=== PATIENT | female | born 1985 | race Caucasian/White ===

== ENCOUNTER → 2020-09-17 | Outpatient (CLI) | payer OTHER ==
[2020-09-17 16:38] LABS: Source, Urine Clean Catch
[2020-09-17 17:50] LABS: Appearance, Urine Turbid (Clear); Bilirubin, Urine Neg (Neg); Blood, Urine Neg (Neg); Color, Urine Yellow (P-Yellow); Glucose Qualitative, Urine Neg (Neg); Ketones, Urine Neg (Neg); Leukocyte Esterase, Urine 2+ (Neg); Nitrite, Urine Neg (Neg); Protein, Urine 1+ (Neg); Urobilinogen, Urine 1+ (Normal)
[2020-09-17 18:02] LABS: Red Blood Cells, Urine Not Seen /hpf (0-2); Squamous Epithelial Cells Many /hpf (Few)
[2020-09-17 18:03] LABS: Amorphous Heavy (0-Heavy); Bacteria Few /hpf
== END | disposition home or self-care (01) ==
LOC: LAB SHORT 11:30 → LAB 11:30
PROVIDERS: Nurse Practitioner Family
DX: R31.29 Other microscopic hematuria (principal)
CPT/HCPCS: 81001; 87086

== ENCOUNTER → 2020-12-05 | Outpatient (CLI) | payer OTHER ==
[2020-12-09 18:10] LABS: HPV 16 Positive (Negative); HPV 18 Negative (Negative); HPV OTHER HR TYPES Positive (Negative)
[2020-12-11 19:09] LABS: CHLAMYDIA BY NAA Negative (Negative); GONOCOCCUS BY NAA Negative (Negative); TRICH VAG BY NAA Negative (Negative)
== END | disposition home or self-care (01) ==
LOC: LAB 19:11 → LAB SHORT 19:11
PROVIDERS: Family Medicine
DX: Z11.52 Encounter for screening for COVID-19 (principal); Z12.4 Encounter for screening for malignant neoplasm of cervix
CPT/HCPCS: 87491; 87591; 87624; 87625; 87661; G0123

== ENCOUNTER → 2021-01-10 | Outpatient (CLI) | payer OTHER | END | disposition home or self-care (01) | LOC: LAB SHORT 16:38 → LAB EV 16:38 | DX: R30.9 Painful micturition, unspecified (principal) | CPT/HCPCS: 87086 ==

== ENCOUNTER → 2021-01-16 | Outpatient (CLI) | payer OTHER | END | disposition home or self-care (01) | LOC: LAB SHORT 13:21 → PLD 13:21 | DX: R87.610 Atypical squamous cells of undetermined significance on cytologic smear of cervix (ASC-US) (principal); R87.810 Cervical high risk human papillomavirus (HPV) DNA test positive | CPT/HCPCS: 88305 ==

== ENCOUNTER → 2021-04-21 | Outpatient (CLI) | payer OTHER | LOC: LAB 11:10 → LAB SHORT 11:10 | DX: N89.8 Other specified noninflammatory disorders of vagina (principal); N94.10 Unspecified dyspareunia; L29.3 Anogenital pruritus, unspecified | CPT/HCPCS: 87070; 87147; 87205 ==

== ENCOUNTER → 2022-01-18 | Outpatient (CLI) | payer OTHER ==
[2022-01-19 15:12] LABS: HPV 16 Negative (Negative); HPV 18 Negative (Negative); HPV OTHER HR TYPES Positive (Negative)
== END | disposition home or self-care (01) ==
LOC: LAB SHORT 12:41 → REF 12:41
PROVIDERS: Family Medicine
DX: Z12.4 Encounter for screening for malignant neoplasm of cervix (principal)
CPT/HCPCS: 87624; 87625; G0123

== ENCOUNTER → 2022-10-07 | Outpatient (CLI) | payer OTHER | LOC: LAB SHORT 09:04 → LAB 09:04 | DX: B35.1 Tinea unguium (principal); L60.2 Onychogryphosis | CPT/HCPCS: 88305; 88312 ==

== ENCOUNTER → 2023-02-28 | Outpatient (CLI) | payer OTHER ==
[2023-03-01 16:07] LABS: HPV 16 Negative (Negative); HPV 18 Negative (Negative); HPV OTHER HR TYPES Negative (Negative)
== END ==
LOC: RAD SHORT 11:00 → LAB 11:00
PROVIDERS: Family Medicine
DX: Z12.4 Encounter for screening for malignant neoplasm of cervix (principal)
CPT/HCPCS: 87624; G0145

== ENCOUNTER 2023-04-12 09:22 | Emergency (ER) | payer OTHER ==
[~2023-04-12] VITALS: Ht 167.6 cm; Wt 116.1 kg
[2023-04-12 09:32] VITALS: BP 165/104
== END 2023-04-12 10:27 | disposition home or self-care (01) ==
LOC: ER 09:22
DX: S80.12XA Contusion of left lower leg, initial encounter (principal); W01.0XXA Fall on same level from slipping, tripping and stumbling without subsequent striking against object, initial encounter
CPT/HCPCS: 99283

== ENCOUNTER 2023-09-23 08:51 | Observation (INO) | payer OTHER ==
[~2023-09-23] VITALS: Ht 167.6 cm; Wt 99.0 kg
[2023-09-23 09:30] LABS: BASOPHILS ABSOLUTE AUTO 0.03 K/mm3 (0.00-0.23); BASOPHILS PERCENT AUTO 0 % (0-2); EOSINOPHILS PERCENT AUTO 0 % (0-6); Hematocrit 45.6 % (33.0-51.0); Hemoglobin 14.7 g/dL (11.5-16.0); IMMATURE GRAN ABSOLUTE AUTO 0.03 K/mm3 (0.00-0.10); IMMATURE GRAN PERCENT AUTO 0 % (0-1); LYMPHOCYTES ABSOLUTE AUTO 0.63 K/mm3 (0.84-5.20); LYMPHOCYTES PERCENT AUTO 6 % (21-46); MONOCYTES ABSOLUTE AUTO 0.56 K/mm3 (0.16-1.47); MONOCYTES PERCENT AUTO 6 % (4-13); Mean Corpuscular HGB 27.5 pg (26.0-34.0); Mean Corpuscular HGB Conc 32.2 g/dL (31.5-36.5); Mean Corpuscular Volume 85 fL (80-100); Mean Platelet Volume 11.1 fL (9.1-12.4); NEUTROPHILS ABSOLUTE AUTO 8.73 K/mm3 (1.96-9.15); NEUTROPHILS PERCENT AUTO 88 % (41-73); Platelet Count 260 K/mm3 (150-400); RDW Coefficient Variation 14.9 % (11.7-14.2); RDW Standard Deviation 45.8 fL (35.1-46.3); Red Blood Cell Count 5.34 M/mm3 (3.80-5.20); White Blood Cell Count 9.98 K/mm3 (4.00-11.30)
[2023-09-23 10:07] LABS: Albumin, Blood 4.3 g/dL (3.4-5.0); Albumin/Globulin Ratio 0.9 (0.8-1.8); Bilirubin, Total 0.6 mg/dL (0.1-1.0); Bun/Creatinine Ratio 26.2 (12.0-20.0); Calcium, Blood 10.1 mg/dL (8.5-10.1); Creatinine, Blood 0.96 mg/dL (0.40-1.00); Globulin, Blood 4.7 g/dL (2.2-4.0); Potassium, Blood 4.2 mmol/L (3.5-5.5)
[2023-09-23 10:40] LABS: Base Excess Venous -16.7 mmol/L; Bicarbonate Venous 12.4 mmol/L (24.0-30.0); PCO2 Venous 33.2 mmHg (38-42); pH Blood Venous 7.16 (7.34-7.37)
[2023-09-23 10:43] LABS: Influenza A, PCR NEGATIVE (NEGATIVE); Influenza B, PCR NEGATIVE (NEGATIVE); Resp Syncytial Virus, PCR NEGATIVE (NEGATIVE); SARS-Cov-2 (COVID-19) PCR, MMC NEGATIVE (NEGATIVE)
[2023-09-23 10:57] LABS: Source, Urine Clean Catch
[2023-09-23 11:00] LABS: Appearance, Urine Clear (Clear); Bilirubin, Urine Neg (Neg); Blood, Urine Neg (Neg); Glucose Qualitative, Urine 4+ (Neg); Ketones, Urine 4+ (Neg); Leukocyte Esterase, Urine Neg (Neg); Nitrite, Urine Neg (Neg); Protein, Urine 1+ (Neg); Urobilinogen, Urine NORM (Normal)
[2023-09-23 11:10] LABS: Color, Urine Pale Yellow (P-Yellow)
[2023-09-23 14:08] VITALS: BP 128/89
[2023-09-23] MEDS ORDERED: METF500 PO (14:23)
[2023-09-23] MEDS ORDERED: STEGLATRO15 MG PO (14:24)
[2023-09-23] MEDS ORDERED: ZYRTEC10 M1 PO (14:25)
[2023-09-23] MEDS ORDERED: DOCU100 PO (14:26)
[2023-09-23] MEDS ORDERED: CALCIUM CIT 311 EAC7 PO (14:28)
[2023-09-23] MEDS ORDERED: FLINTSTONES WIT18 M2 PO (14:29)
[2023-09-23] MEDS ORDERED: ATOR40TA PO (14:30)
[2023-09-23] MEDS ORDERED: Vitamin D1000 UNI1 PO (14:31)
[2023-09-23] MEDS ORDERED: ENOX40I SC (14:32)
[2023-09-23] MEDS ORDERED: OMEP20ER PO (14:34)
[2023-09-23 15:55] VITALS: BP 148/98
--- NOTE | 2023-09-23 16:50 | NUR ---
SHIFT SUMMARY PT IS A NEW ADMIT THIS AFTERNOON. SHE CAME IN WITH KETOACIDOSIS. SHE RECENTLY HAD A GASTRIC SLEEVE PLACED 08/24 AND SWITCHED TO SOLID FOODS A FEW WEEKS AGO. THE PT THINKS SHE MAY HAVE HAD SOME SPOILED LUNCH MEAT YESTERDAY AND HAS BEEN HAVING N/V/D SINCE YESTERDAY NIGHT. SINCE MEDICATED FOR N/V IN THE ER THE PT HAS NOT BEEN HAVING ANY, AND HAS BEEN ABLE TO TOLERATE JELO AND WATER. SHE DENIES ANY ABD PAIN AT THIS TIME. SHE HAS NS INFUSING AT 200ML/HR PER EMAR. ON TELE SHE IS ST 100'S-110'S BUT SHE STATES SHE FELS PALIPATIONS WHEN HER HR SPEEDS UP. THIS HAS BEEN ONGOING SINCE HER SURGERY. THE PT DOES NOT TAKE ANY CARDIAC MEDICATIONS AT HOME. SHE STATED THAT HER PCP RECENTLY STOPPED HER 5MG LISINOPRIL. HER SP02 >90% ON RA AND SHE DENIES ANY SOB. TODAY IS THE PT'S BIRTHDAY AND HER AND DAUGHTER STOPPED BY AND VISITED. THE HAS BEEN UPDATED ON THE PT'S CONDITION. SEE NOTES FOR ANYMORE UPDATES. FIRE IGNITION RISK HAS BEEN ASSESSED.
[2023-09-23 17:04] LABS: Calcium, Blood 8.8 mg/dL (8.5-10.1); Creatinine, Blood 0.83 mg/dL (0.40-1.00); Potassium, Blood 4.3 mmol/L (3.5-5.5)
[2023-09-23 22:11] LABS: Bun/Creatinine Ratio 20.4 (12.0-20.0); Calcium, Blood 8.2 mg/dL (8.5-10.1); Creatinine, Blood 0.83 mg/dL (0.40-1.00); Potassium, Blood 4.3 mmol/L (3.5-5.5)
[2023-09-24 00:15] VITALS: BP 93/59
[2023-09-24 05:16] LABS: BASOPHILS ABSOLUTE AUTO 0.01 K/mm3 (0.00-0.23); BASOPHILS PERCENT AUTO 0 % (0-2); EOSINOPHILS ABSOLUTE AUTO 0.04 K/mm3 (0.00-0.68); EOSINOPHILS PERCENT AUTO 1 % (0-6); Hematocrit 36.6 % (33.0-51.0); Hemoglobin 11.7 g/dL (11.5-16.0); IMMATURE GRAN ABSOLUTE AUTO 0.02 K/mm3 (0.00-0.10); IMMATURE GRAN PERCENT AUTO 0 % (0-1); LYMPHOCYTES ABSOLUTE AUTO 1.42 K/mm3 (0.84-5.20); LYMPHOCYTES PERCENT AUTO 24 % (21-46); MONOCYTES ABSOLUTE AUTO 0.37 K/mm3 (0.16-1.47); MONOCYTES PERCENT AUTO 6 % (4-13); Mean Corpuscular Volume 88 fL (80-100); Mean Platelet Volume 11.5 fL (9.1-12.4); NEUTROPHILS ABSOLUTE AUTO 4.19 K/mm3 (1.96-9.15); NEUTROPHILS PERCENT AUTO 69 % (41-73); Platelet Count 230 K/mm3 (150-400); RDW Coefficient Variation 15.5 % (11.7-14.2); RDW Standard Deviation 50.2 fL (35.1-46.3); Red Blood Cell Count 4.18 M/mm3 (3.80-5.20); White Blood Cell Count 6.05 K/mm3 (4.00-11.30)
--- NOTE | 2023-09-24 05:50 | NUR ---
SHIFT SUMMARY PT IS HERE WITH KETOACIDOSIS AND IS ALSO S/P FROM A GASTRIC SLEEVE PERFORMED A MONTH AGO. PT WAS ABLE TO REST THIS SHIFT WITH NO ACUTE EVENTS OCCURRING OVERNIGHT. PT'S CO2 WENT DOWN FROM 10 TO 9 AND YONATHAN ELLIS WAS NOTIFIED. BED IS IN LOWEST POSITION, CALL LIGHT IS WITHIN REACH.
[2023-09-24 06:00] LABS: Magnesium, Blood 1.8 mg/dL (1.6-2.4)
[2023-09-24 06:20] LABS: Bun/Creatinine Ratio 18.4 (12.0-20.0); Calcium, Blood 8.4 mg/dL (8.5-10.1); Creatinine, Blood 0.81 mg/dL (0.40-1.00); Potassium, Blood 4.1 mmol/L (3.5-5.5)
[2023-09-24 08:02] VITALS: BP 118/72
[2023-09-24 11:40] LABS: Bun/Creatinine Ratio 19.3 (12.0-20.0); Calcium, Blood 8.2 mg/dL (8.5-10.1); Creatinine, Blood 0.78 mg/dL (0.40-1.00)
[2023-09-24 12:00] VITALS: BP 120/77
[2023-09-24 15:26] VITALS: BP 107/72
--- NOTE | 2023-09-24 18:00 | NUR ---
NO ACUTE EVENTS. PT DICHARGED HOME I WENT OVER DISCHARGE INFORMATION WITH THE PT AND HER . IV'S WERE D/C'D AND BELONGINGS WERE SENT HOME WITH THE PT. VS STABLE.
== END 2023-09-24 15:30 | disposition home or self-care (01) ==
LOC: ER 08:51 → PCU 08:53 → ERHOLD 08:53 → PCU 12:11 → ER 12:11 → PCU 13:57 → ERHOLD 13:57 → PCU 13:57
PROVIDERS: Emergency Medicine; Internal Medicine; ADMIT Internal Medicine
DX: E11.10 Type 2 diabetes mellitus with ketoacidosis without coma (principal); Z20.822 Contact with and (suspected) exposure to COVID-19; E86.0 Dehydration; I10 Essential (primary) hypertension
CPT/HCPCS: 0241U; 36415; 80048; 80053; 82803; 82947; 83605; 83690; 83735; 85025; 96361; 96374; 96375; 99284-25; A9270; G0378; J1650; J2405; J2765; J7030

== ENCOUNTER 2024-11-07 09:50 | Day surgery (SDC) | payer OTHER ==
[~2024-11-07 09:50] MED LIST: ATOR40TA PO; CALCIUM CIT 311 EAC7 PO; DOCU100 PO; ENOX40I SC; FLINTSTONES WIT18 M2 PO; METF500 PO; OMEP20ER PO; STEGLATRO15 MG PO; Vitamin D1000 UNI1 PO; ZYRTEC10 M1 PO
== END 2024-11-07 23:00 | disposition home or self-care (01) ==
LOC: WOUND 09:50
DX: E11.3293 Type 2 diabetes mellitus with mild nonproliferative diabetic retinopathy without macular edema, bilateral (principal); I10 Essential (primary) hypertension
CPT/HCPCS: G0463